=== PATIENT | female | born 1965 | race African-American/Black ===

== ENCOUNTER 2021-09-17 18:17 | Emergency (ER) | payer BC, OTHER ==
[2021-09-17 18:28] VITALS: BP 133/80; PULSE 111; TEMP 97.9; BMI 42.4
[2021-09-17] MEDS ORDERED: IBUPROFEN 400 MG TABLET (FP) PO ONE ×2 (18:44→18:46)
== END 2021-09-17 21:00 | disposition home or self-care (01) ==
LOC: JERFT 18:17
PROC: 0H93XZZ Drainage of Left Ear Skin, External Approach (ICD-10-PCS; principal; 2021-09-17)
DX: H60.02 Abscess of left external ear (principal)
CPT/HCPCS: 99283-25

== ENCOUNTER 2021-09-19 16:17 | Emergency (ER) | payer OTHER ==
[2021-09-19 16:34] VITALS: BP 107/71; PULSE 101; TEMP 98.1; BMI 41.5
== END 2021-09-19 18:21 | disposition home or self-care (01) ==
LOC: JERFT 16:17
DX: H60.02 Abscess of left external ear (principal); Z48.01 Encounter for change or removal of surgical wound dressing
CPT/HCPCS: 99281-25